=== PATIENT | male | born 1995 | race African-American/Black ===

== ENCOUNTER 2016-11-19 13:47 | Emergency (ER) | payer OTHER ==
[~2016-11-19] VITALS: Ht 190.5 cm; Wt 93.0 kg
--- NOTE | ~2016-11-19 | EKG ---
[place] [address] [facility] [place] [address] ELECTROCARDIOGRAM REPORT Name: KATHARINA HEREDIA Room #: DEP Sarita#: [id number] Admission: 11/19/16 Attend Phys: Discharge: 11/19/16 Date of : [birth year] Report #: [id number] THIS REPORT FOR: //name// [facility] ED Test Date: 2016-11-19 Test Time: 13:53:10 Pat Name: KATHARINA HEREDIA Department: Room: Gender: Hvac R Instructor: Courtney ERNANDEZ : 1995 Requested By: Edilberto Patel Order Number: [id number] MD: Jovanny Connolly Measurements Intervals [place] Rate: 56 P: 133 [place]: 169 QRS: -34 QRSD: 109 T: 21 QT: 423 QTc: 409 Interpretive Statements Sinus rhythm Left axis deviation early repolarization Compared to ECG 12/22/2015 00:13:27 Incomplete right bundle-branch block no longer present Electronically Signed On 11-20-2016 11:02:45 CDT by Jovanny Connolly [email or web address] <ELECTRONICALLY SIGNED> By: Jovanny Connolly MD 11/20/16 1102 [id number] Jovanny Connolly MD /JENNA
[~2016-11-19 13:47] MED LIST: NOHOMEMEDICATIONS
[2016-11-19] MEDS ORDERED: ZOFRAN ODT8 MG PO (15:37)
[2016-11-19 16:28] VITALS: BP 122/83
== END 2016-11-19 16:34 | disposition home or self-care (01) ==
LOC: ER 13:47
DX: F32.9 Major depressive disorder, single episode, unspecified (principal); R11.2 Nausea with vomiting, unspecified; F41.9 Anxiety disorder, unspecified; F98.8 Other specified behavioral and emotional disorders with onset usually occurring in childhood and adolescence